=== PATIENT | female | born 1950 | race Two or more races ===

== ENCOUNTER 2018-06-11 20:55 | Inpatient (IN) | payer MEDICARE, OTHER ==
[~2018-06-11] VITALS: Ht 154.9 cm; Wt 64.4 kg
[~2018-06-11 20:55] MED LIST: ENAL20TA
[2018-06-11] MEDS ORDERED: NITROGLYCERIN 4.9 GM SPRAY TL ONE (21:20)
[2018-06-11] MEDS ORDERED: NITROGLYCERIN 0.4 MG/TAB BOTTLE SL ONE (21:30)
[2018-06-11 21:32] LABS: BASOPHILS # (AUTO) 0.1 K/uL (0.0-8.0); BASOPHILS % (AUTO) 0.9 % (0.0-2.0); EOSINOPHILS # (AUTO) 0.3 K/uL (0.0-0.7); HEMATOCRIT 37.9 % (31.2-41.9); HEMOGLOBIN 12.9 g/dL (10.9-14.3); LYMPHOCYTES # (AUTO) 2.4 K/uL (20.0-40.0); LYMPHOCYTES % (AUTO) 40.5 % (20.5-51.5); MEAN CORPUSCULAR HGB CONC 34 g/dL (32.3-35.6); MEAN CORPUSCULAR VOLUME 90.9 fL (75.5-95.3); MONOCYTES # (AUTO) 0.5 K/uL (2.0-10.0); MONOCYTES % (AUTO) 8.1 % (0.0-11.0); NEUTROPHILS # (AUTO) 2.7 K/uL (1.8-8.9); NEUTROPHILS % (AUTO) 45.5 % (38.5-71.5); PLATELET COUNT (AUTO) 243 K/uL (179-408); RED BLOOD CELL COUNT(AUTO) 4.17 MIL/uL (3.63-4.92)
[2018-06-11] MEDS ORDERED: MECL-102 PO (21:37)
[2018-06-11] MEDS ORDERED: PANT40TA4 PO (21:37)
[2018-06-11] MEDS ORDERED: GABA-534 PO (21:37)
[2018-06-11] MEDS ORDERED: GEMF600T4 PO (21:37)
[2018-06-11] MEDS ORDERED: TRIA0.2585 PO (21:37)
[2018-06-11] MEDS ORDERED: ROSU40TA22 PO (21:37)
[2018-06-11] MEDS ORDERED: ENAL20TA PO (21:37)
[2018-06-11] MEDS ORDERED: CLOP75TA33 PO (21:37)
[2018-06-11] MEDS ORDERED: AMLO10TA6 PO (21:37)
[2018-06-11] MEDS ORDERED: NAPR500T6 PO (21:37)
[2018-06-11] MEDS ORDERED: ASPI-605 PO (21:37)
[2018-06-11 21:42] LABS: CREATININE 0.7 mg/dL (0.6-1.3); POTASSIUM 3.9 mmol/L (3.5-5.1)
[2018-06-11 21:54] LABS: BILIRUBIN,DIRECT 0.1 mg/dL (0.0-0.2); BILIRUBIN,TOTAL 0.3 mg/dL (0.2-1.0); TOTAL PROTEIN, SERUM 7.8 g/dL (6.4-8.2)
[2018-06-11] MEDS ORDERED: MORPHINE SULFATE 2 MG/1 ML DISP.SYRIN ONE (21:58)
[2018-06-11] MEDS ORDERED: ONDANSETRON 4 MG/2 ML VIAL ONE (21:58)
[2018-06-11] MEDS ORDERED: NITROGLYCERIN OINT 1 GM PACKET TP ONE ×2 (21:58→22:00)
[2018-06-11] MEDS ORDERED: ACETAMINOPHEN ES 500 MG TABLET ONE (21:58)
[2018-06-11] MEDS ORDERED: ACETAMINOPHEN ES 500 MG TABLET PO ONE (22:00)
[2018-06-11] MEDS ORDERED: NITROGLYCERIN 4.9 GM SPRAY TL PRN (22:00)
[2018-06-11] MEDS ORDERED: MORPHINE SULFATE 2 MG/1 ML DISP.SYRIN IV ONE (22:00)
[2018-06-11] MEDS ORDERED: ONDANSETRON 4 MG/2 ML VIAL IV ONE (22:00)
--- NOTE | 2018-06-11 22:39 | NUR ---
Placed call to [facility]. Pending call back from Dr. Meir Fuchs.
--- NOTE | 2018-06-11 22:49 | NUR ---
Dr. Adalid RIDDLE MD speaking to Dr. Fuchs.
[2018-06-11] MEDS ORDERED: GABAPENTIN 300 MG CAPSULE PO SCH (23:00)
[2018-06-11] MEDS ORDERED: MECLIZINE HCL 25 MG TABLET PO PRN (23:00)
--- NOTE | 2018-06-11 23:15 | NUR ---
Pt. admitted to Telemetry , under care of Dr. Moser. Belongs List completed. Report given to EDUARDO Morton.
--- NOTE | 2018-06-11 23:30 | NUR ---
Received pt on tele unit via [facility]yr[facility] under the care of DR FLOYD MD. Tele placed and noted to be SR with HR 62. BP 120/60. O2 sat 97% RA. IV on right FA 20 g intact. Pt complains of chest pain 3/10 on a pain scale at this time. Pertinent assessments and unit orientation done. Belongings list completed. Safety precautions and comfort measures initiated. Call light within reach. Will continue to monitor.
[2018-06-12] MEDS ORDERED: ACETAMINOPHEN 325 MG TABLET PO PRN (00:15)
[2018-06-12] MEDS ORDERED: ENALAPRILAT DIHYDRATE 1.25 MG/1 ML VIAL IV PRN (00:15)
[2018-06-12] MEDS ORDERED: NITROGLYCERIN 0.4 MG/TAB BOTTLE SL PRN (00:15)
[2018-06-12] MEDS ORDERED: ONDANSETRON 4 MG/2 ML VIAL IV PRN (00:15)
[2018-06-12] MEDS ORDERED: ZOLPIDEM 5 MG TABLET PO PRN (00:15)
[2018-06-12] MEDS ORDERED: HYDROCODONE/APAP 5-325MG TABLET PO PRN (00:15)
[2018-06-12] MEDS ORDERED: MAGNESIUM HYDROXIDE 30 ML LIQUID UDC PO PRN (00:15)
[2018-06-12 00:52] VITALS: BP 120/80
[2018-06-12 04:00] VITALS: BP 101/55
[2018-06-12 06:45] LABS: BASOPHILS # (AUTO) 0.1 K/uL (0.0-8.0); EOSINOPHILS # (AUTO) 0.4 K/uL (0.0-0.7); EOSINOPHILS % (AUTO) 5.7 % (0.0-7.0); HEMATOCRIT 35.4 % (31.2-41.9); HEMOGLOBIN 12.3 g/dL (10.9-14.3); LYMPHOCYTES # (AUTO) 2.8 K/uL (20.0-40.0); LYMPHOCYTES % (AUTO) 42.9 % (20.5-51.5); MEAN CORPUSCULAR HEMOGLOBIN 31.2 uug (24.7-32.8); MEAN CORPUSCULAR HGB CONC 35 g/dL (32.3-35.6); MEAN CORPUSCULAR VOLUME 90.1 fL (75.5-95.3); MONOCYTES # (AUTO) 0.5 K/uL (2.0-10.0); MONOCYTES % (AUTO) 7.8 % (0.0-11.0); NEUTROPHILS # (AUTO) 2.8 K/uL (1.8-8.9); NEUTROPHILS % (AUTO) 42.6 % (38.5-71.5); PLATELET COUNT (AUTO) 216 K/uL (179-408); RED BLOOD CELL COUNT(AUTO) 3.93 MIL/uL (3.63-4.92); WHITE BLOOD COUNT (AUTO) 6.6 K/uL (3.8-11.8)
--- NOTE | 2018-06-12 06:53 | NUR ---
No significant changes t/o the night. Tele noted to be SR-SB with HR of 52. O2 sat 97% RA. Blood pressure controlled during shift. Pt denies chest pain, SOB or severe headache. Pt shows no s/s of acute distress. Safety precautions maintained. Bed on low locked position. Call light within reach. Will endorse continuity of care to day shift nurse.
[2018-06-12 07:00] LABS: BILIRUBIN,TOTAL 0.3 mg/dL (0.2-1.0); CREATININE 0.7 mg/dL (0.6-1.3); MAGNESIUM 1.9 mg/dL (1.8-2.4); PHOSPHOROUS 4.5 mg/dL (2.5-4.9); POTASSIUM 4.3 mmol/L (3.5-5.1); TOTAL PROTEIN, SERUM 6.8 g/dL (6.4-8.2)
[2018-06-12 07:02] LABS: THYROID STIMULATING HORMONE 2.762 mIU/mL (0.358-3.740)
[2018-06-12 08:00] VITALS: BP 121/62
--- NOTE | 2018-06-12 08:00 | NUR ---
AWAKE ALERT COOPERATE WELL NO SOB OR CHEST PAIN EAT BREAKFAST WELL RESTING QUIET IN BED WITH CALL LIGHT IN REACH
[2018-06-12] MEDS ORDERED: PANTOPRAZOLE SODIUM 40 MG TABLET.DR PO SCH (09:00)
[2018-06-12] MEDS ORDERED: ASPIRIN EC 81 MG TABLET.DR PO SCH (09:00)
[2018-06-12] MEDS ORDERED: AMLODIPINE 10 MG TABLET PO SCH (09:00)
[2018-06-12] MEDS ORDERED: CLOPIDOGREL 75 MG TABLET PO SCH (09:00)
[2018-06-12] MEDS ORDERED: Medication Not On Formulary EA (Enalapril Maleate 20 MG) PO SCH (09:00)
[2018-06-12] MEDS: GEMFIBROZIL 600 MG TABLET PO SCH ×2 (09:23→16:59)
[2018-06-12] MEDS: ENALAPRIL 10 MG TABLET PO SCH ×2 (09:24→16:59)
--- NOTE | 2018-06-12 10:00 | NUR ---
ECCHO CARDIOGRAM DONE AT BEDSIDE JOSE MANUEL PROCEDURE WELL FAMILY AT BEDSIDE
[2018-06-12 12:00] VITALS: BP 119/55
--- NOTE | 2018-06-12 15:00 | NUR ---
FRANCI DONG SEE PATIENT AND PT DAUGHTER NO NEW ORDER
[2018-06-12 15:53] VITALS: BP 115/65
[2018-06-12 16:59] VITALS: BP 115/65
--- NOTE | 2018-06-12 17:30 | NUR ---
STABLE HEMODYNAMIC STATUS ,PAIN UNDER CONTROL NO ACUTE DISTRESS OR SOB SAFETY MEASURE PROVIDED CALL LIGHT IN REACH
--- NOTE | 2018-06-12 19:20 | NUR ---
RECEIVED PATIENT AWAKE ON BED, AAOX4, DENIES ANY CHEST PAIN OR SOB AT THIS TIME. IV SITE ON RAC, PATENT AND INTACT. FAMILY AT BEDSIDE. SAFETY MEASURE INITIATED, CALL BELTRÁN WITHIN REACH.
--- NOTE | 2018-06-12 20:15 | NUR ---
PATIENT DISCHARGED TO HOME IN STABLE CONDITION. AAOX4, DENIES ANY DISCOMFORT AT THIS TIME. D/C PROTOCOL FOLLOWED; DISCHARGE INSTRUCTIONS GIVEN TO PATIENT TO FOLLOW UP WITH PCP WITHIN 1 WEEK AND TO SEE PROGRAM AND RESEARCH COORDINATOR WITHIN 1-2 WEEKS, PATIENT VERBALIZED UNDERSTANDING. EDUCATIONAL MATERIALS ON HYPERTENSION, CHEST PAIN AND LOW SALT DIET PROVIDED. IV SITE AND NAME BAND REMOVED. BELONGING LIST COMPLETED. PATIENT LEFT HOSPITAL IN APPARENT FAIR CONDITION.
== END 2018-06-12 20:20 | disposition home or self-care (01) | DRG 311 ==
LOC: ER 20:56 → TELE 23:12
PROVIDERS: ADMIT Hospitalist; ATTEND Hospitalist
DX: I20.1 Angina pectoris with documented spasm (principal); E78.5 Hyperlipidemia, unspecified; F43.9 Reaction to severe stress, unspecified; I10 Essential (primary) hypertension; Z82.49 Family history of ischemic heart disease and other diseases of the circulatory system
CPT/HCPCS: 36415; 70030-TC; 71045; 83735; 84100; 84443; 85025; 85730; 93005; 93307; A4663; A9150; G0378; J2270; J2405; J3535